=== PATIENT | female | born 1945 | race Caucasian/White ===

== ENCOUNTER 2021-07-05 13:21 | Emergency (ER) | payer MEDICARE, BC ==
[~2021-07-05] VITALS: Ht 157.5 cm; Wt 74.4 kg
[2021-07-05 13:23] VITALS: BP 145/60
[2021-07-05 14:11] LABS: Basophils # (auto) 0 10 ^3/uL (0-0.2); Basophils % (auto) 0.5 % (0.0-2.0); Eosinophils # (auto) 0.1 10 ^3/uL (0-0.8); Hematocrit 40.5 % (36.0-46.0); Hemoglobin 13.5 g/dL (12.2-16.2); Lymphocytes % (auto) 30.1 % (10.0-50.0); Mean Corpuscular Hemoglobin 29.2 pg (28.0-32.0); Mean Corpuscular Hgb Conc. 33.4 g/dL (32.0-36.0); Mean Corpuscular Volume 87.2 fL (80.0-100.0); Monocytes # (auto) 0.4 10 ^3/uL (0-1.3); Monocytes % (auto) 6.5 % (0.0-12.0); Neutrophils % (auto) 61.9 % (37.0-80.0); Nucleated Red Blood Cells % 0.1 %; Red Blood Cells 4.65 10^6/uL (4.0-5.20); Red Cell Distribution Width 14.2 % (11.8-14.3); White Blood Cell 6.5 10^3/uL (4.4-10.8)
[2021-07-05 14:41] LABS: Albumin 3.7 g/dL (3.4-5.0); Calcium 9.2 mg/dL (8.5-10.1)
[2021-07-05 14:45] LABS: BUN/Creatinine Ratio 13.9; Bilirubin, Total 0.2 mg/dL (0.2-1.0); Total Protein 7.2 g/dL (6.4-8.2)
== END 2021-07-05 22:40 | disposition left against medical advice (07) ==
LOC: ER 13:21
DX: R10.30 Lower abdominal pain, unspecified (principal); Z87.891 Personal history of nicotine dependence
CPT/HCPCS: 36415; 80053; 85025

== ENCOUNTER 2023-12-06 17:46 | Emergency (ER) | payer MEDICARE, BC ==
[~2023-12-06] VITALS: Ht 170.2 cm; Wt 68.2 kg
[2023-12-06 17:46] VITALS: BP 184/74; PULSE 86; RESP 20; O2SAT 96
== END 2023-12-06 20:40 | disposition left against medical advice (07) ==
LOC: ER 17:46 → EDBD 17:46 → ER 20:40
DX: T78.40XA Allergy, unspecified, initial encounter (principal); Z53.21 Procedure and treatment not carried out due to patient leaving prior to being seen by health care provider; X58.XXXA Exposure to other specified factors, initial encounter